=== PATIENT | male | born 2000 | race Hispanic/Latino ===

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

== ENCOUNTER → 2023-05-15 | Emergency (ER) | payer OTHER, SELFPAY ==
[~2023-05-15] MED LIST: KETOROLAC 30 MG/ML INJ ONE; MAGNES/ALUMIN/SIMET 30ML UCUP ONE; PANTOPRAZOLE 40MG TABLET PO ONE
[2023-05-15 22:14] LABS: Hematocrit 43.5 % (39.6-49.0); Lymphocytes % 40.2 % (15.3-44.8); MCV 89.2 fL (80-100); MPV 9.5 fL (7.6-11.3); Platelets 193 thou/uL (152-406); RBC Red Blood Cell Count 4.88 M/uL (4.33-5.43)
--- NOTE | 2023-05-15 22:33 | RAD REPORT ---
EXAM DESCRIPTION: RAD - Chest Single View - 05/15/2023 10:20 pm CLINICAL HISTORY: CHEST PAIN Chest pain. COMPARISON: CHEST PA AND LAT 2 VIEW dated 12/28/2012 FINDINGS: Portable technique limits examination quality. The lungs are grossly clear. The heart is normal in size. No displaced fractures. IMPRESSION: No acute intrathoracic process suspected.
[2023-05-15 22:37] LABS: ALT/SGPT 18 U/L (16-61); AST/SGOT 10 U/L (15-37); Albumin 4.2 g/dL (3.4-5.0); Alkaline Phosphatase 54 U/L (45-117); BUN Blood Urea Nitrogen 11 mg/dL (7-18); Bicarbonate 30 mEq/L (21-32); Bilirubin Direct 0.2 mg/dL (0-0.2); Bilirubin Indirect, Calculated 0.4 mg/dL (0.2-0.8); Bilirubin Total 0.6 mg/dL (0.2-1.0); Glomerular Filtration Rate 114 ml/min (=/>90); Glucose Level 101 mg/dL (74-106); Lipase 43 U/L (13-75); Magnesium 2.2 mg/dL (1.6-2.4); Potassium 4.1 mEq/L (3.5-5.1); Protein, Total 7.6 g/dL (6.4-8.2); Sodium Level 141 mEq/L (136-145)
[2023-05-15 22:42] LABS: Troponin High Sensitivity < 3.0 pg/mL (<58.9)
--- NOTE | 2023-05-15 22:51 | ER ---
Nurse's Notes [facility] Name: Billy Miner Age: 23 yrs Sex: Male : 2000 Arrival Date: 05/15/2023 Time: 21:09 Bed 6 Private MD: Diagnosis: Chest pain, unspecified Presentation: 05/15 21:30 Chief complaint: Patient states: I am having epigastric pain that radiates into my jb4 chest and abdomen. It started about 1030, it's intermittent. I am having some nausea and SOB. Coronavirus screen: At this time, the client does not indicate any symptoms associated with coronavirus-19. Ebola Screen: No symptoms or risks identified at this time. Initial Sepsis Screen: Does the patient meet any 2 criteria? No. Patient's initial sepsis screen is negative. Does the patient have a suspected source of infection? No. Patient's initial sepsis screen is negative. Risk Assessment: Do you want to hurt yourself or someone else? Patient reports no desire to harm self or others. Onset of symptoms was May 15, 2023. Transition of care: patient was not received from another setting of care. 21:30 Method Of Arrival: Ambulatory jb4 21:30 Acuity: GIGI 3 jb4 Historical: - Allergies: 21:37 Zithromax; jb4 - PMHx: 21:37 Depression; Anxiety; jb4 - PSHx: 21:37 Mouth; jb4 - Immunization history:: Adult Immunizations up to date. - Social history:: Smoking status: Patient denies any tobacco usage or history of. Patient uses alcohol, occasionally. - Family history:: not pertinent. Screenin:50 Abuse screen: Denies threats or abuse. Denies injuries from another. nw1 21:50 Tuberculosis screening: No symptoms or risk factors identified. nw1 22:43 [facility] ED Fall Risk Assessment (Adult) History of falling in the last 3 months, nw1 including since admission No falls in past 3 months (0 pts). Nutritional screening: No deficits noted. Assessment: 21:50 Reassessment: Pt noted in bed with guest at bedside. Pt denies pain at this time and nw1 states that it hurts more with ambulation and is intermittent. VSS at this time. Call light at bedside. 0 s/s of acute distress noted at this time. Will continue to monitor. General: Appears in no apparent distress. comfortable, slender, Behavior is calm, cooperative, appropriate for age. Pain: Complains of pain in chest Pain does not radiate. Pain began 2 hours ago. Is intermittent. Cardiovascular: Reports chest pain, Denies diaphoresis, fatigue, lightheadedness, nausea, palpitations, shortness of breath, syncope, vomiting, Heart tones present. Respiratory: No deficits noted. : No deficits noted. No signs and/or symptoms were reported regarding the genitourinary system. Derm: No signs and/or symptoms reported regarding the dermatologic system. Skin is intact, is healthy with good turgor, Skin is dry, Skin is pink, warm \T\ dry. Musculoskeletal: No signs and/or symptoms reported regarding the musculoskeletal system. Capillary refill < 3 seconds, Range of motion: intact in all extremities. 21:50 GI: No deficits noted. No signs and/or symptoms were reported involving the nw1 gastrointestinal system. Vital Signs: 21:30 BP 123 / 86; Pulse 81; Resp 16; Temp 98.2(TE); Pulse Ox 100% on R/A; Weight 63.05 kg jb4 (R); Height 6 ft. 0 in. (R); 22:00 BP 116 / 72; Pulse 76; Resp 14; Pulse Ox 100% on R/A; km8 22:31 BP 114 / 78; Pulse 76; Pulse Ox 99% on R/A; nw1 23:32 BP 109 / 74; Pulse 76; Resp 17; Pulse Ox 100% on R/A; Pain 0/10; nw1 21:30 Body Mass Index 18.85 (63.05 kg, 182.88 cm) jb4 23:32 Pain Scale: Adult nw1 Wilder Coma Score: 22:43 Eye Response: spontaneous(4). Motor Response: obeys commands(6). Verbal Response: nw1 oriented(5). Total: 15. ED Course: 21:17 Patient arrived in ED. gm2 21:18 Parminder Yang MD is Attending Physician. rt 21:37 Triage completed. jb4 21:37 Arm band placed on right wrist. jb4 21:45 Gely Underwood, CORBY is Primary Nurse. nw1 21:50 Client placed on continuous cardiac and pulse oximetry monitoring. NIBP monitoring nw1 applied. master deputy [address] security on. Pulse ox on. NIBP on. 21:50 Inserted saline lock: 20 gauge in left forearm, using aseptic technique. Blood nw1 collected. Patient maintains SpO2 saturation greater than 95% on room air. 21:58 XRAY Chest (1 view) Sent. nw1 21:58 CBC with Diff Sent. nw1 21:58 LFT's Sent. nw1 21:58 Magnesium Sent. nw1 21:58 Troponin HS Sent. nw1 21:58 No provider procedures requiring assistance completed. nw1 21:59 Lipase Sent. nw1 22:21 XRAY Chest (1 view) In Process Unspecified. EDMS 22:43 Patient has correct armband on for positive identification. Placed in gown. Bed in low nw1 position. Call light in reach. Side rails up X2. Provided Education on: POC. Door closed. Warm blanket given. 23:32 IV discontinued, intact, bleeding controlled, No redness/swelling at site. Pressure nw1 dressing applied. Administered Medications: 22:18 Drug: Alum-Mag Hydroxide-Simeth PO Suspension (200 mg-200 mg-20 mg/5 mL) 30 ml PO once nw1 Route: PO; 23:12 Follow up: Response: No adverse reaction km8 22:18 Drug: Pantoprazole PO 40 mg PO once Route: PO; nw1 23:12 Follow up: Response: No adverse reaction km8 23:24 Drug: Ketorolac IVP 15 mg IVP once Route: IVP; Site: left forearm; nw1 Medication: 22:43 VIS not applicable for this client. nw1 Outcome: 22:51 Discharge ordered by . rt 23:32 Discharged to home ambulatory, nw1 23:32 Condition: stable 23:32 Discharge instructions given to patient, Instructed on discharge instructions, follow up and referral plans. Demonstrated understanding of instructions, follow-up care, 23:34 Patient left the ED. nw1 Signatures: Dispatcher [employer] EDMN Nomi Engle, RN RN jb4 Parminder Yang MD MD rt Jeni Hernandez 2 Stacy Vitale, CORBY RN km8 Gely Underwood, CORBY RN nw1 Corrections: (The following items were deleted from the chart) 22:53 22:43 Client placed on continuous cardiac and pulse oximetry monitoring. NIBP nw1 monitoring applied. master deputy sheriff court security on. Pulse ox on. NIBP on. nw 22:43 Abuse screen: Denies threats or abuse. Denies injuries from another. nw1 53 22:43 Tuberculosis screening: No symptoms or risk factors identified. nw1 22:43 Reassessment: Pt noted in bed with guest at bedside. Pt denies pain at this time nw1 and states that it hurts more with ambulation and is intermittent. VSS at this time. Call light at bedside. 0 s/s of acute distress noted at this time. Will continue to monitor. nw 22:43 General: Appears in no apparent distress. comfortable, slender, Behavior is calm, nw1 cooperative, appropriate for age, nw 22:43 Pain: Complains of pain in chest Pain does not radiate. Pain began 2 hours ago. nw1 Is intermittent, 22:43 Cardiovascular: Reports chest pain, Denies diaphoresis, fatigue, lightheadedness, nw1 nausea, palpitations, shortness of breath, syncope, vomiting, Heart tones present 22:43 Respiratory: No deficits noted. nw1 22:43 GI: No deficits noted. No signs and/or symptoms were reported involving the nw1 gastrointestinal system. nw 22:43 : No deficits noted. No signs and/or symptoms were reported regarding the nw1 genitourinary system. nw 22:43 Derm: No signs and/or symptoms reported regarding the dermatologic system. Skin nw1 is intact, is healthy with good turgor, Skin is dry, Skin is pink, warm \T\ dry. nw 22:43 Musculoskeletal: No signs and/or symptoms reported regarding the musculoskeletal nw1 system. Capillary refill < 3 seconds, Range of motion: intact in all extremities, nw1
--- NOTE | 2023-05-15 22:51 | EDPHYS ---
Physician Documentation [facility] Name: Billy Miner Age: 23 yrs Sex: Male : 2000 Arrival Date: 05/15/2023 Time: 21:09 Bed 6 Private MD: ED Physician Parminder Yang HPI: 05/15 22:15 This 23 yrs old Male presents to ER via Ambulatory with complaints of Chest rt Pain, Abdominal Problem. 22:15 Patient presents to the ED with an upper epigastric to lower chest pain started about rt 10. Has been coming and going. Denies any inciting, aggravating or alleviating factors. Similar symptoms previously. Has reported nausea, vomiting. Denies other acute complaints, symptoms are mild severity, no other aggravating relieving factors.. Historical: - Allergies: 21:37 Zithromax; jb4 - PMHx: 21:37 Depression; Anxiety; jb4 - PSHx: 21:37 Mouth; jb4 - Immunization history:: Adult Immunizations up to date. - Social history:: Smoking status: Patient denies any tobacco usage or history of. Patient uses alcohol, occasionally. - Family history:: not pertinent. ROS: 22:15 Constitutional: Negative for fever, chills, and weight loss, Respiratory: Negative for rt shortness of breath, cough, wheezing, and pleuritic chest pain, MS/Extremity: Negative for injury and deformity, Skin: Negative for injury, rash, and discoloration, Neuro: Negative for headache, weakness, numbness, tingling, and seizure, Psych: Negative for depression, anxiety, suicide ideation, homicidal ideation, and hallucinations, 22:15 Cardiovascular: Positive for chest pain, Negative for edema, 22:15 Abdomen/GI: Positive for abdominal pain, nausea, Exam: 22:15 Constitutional: This is a well developed, well nourished patient who is awake, alert, rt and in no acute distress. Head/Face: Normocephalic, atraumatic. Chest/axilla: Normal chest wall appearance and motion. Nontender with no deformity. No lesions are appreciated. Cardiovascular: Regular rate and rhythm with a normal S1 and S2. No gallops, murmurs, or rubs. Normal PMI, no JVD. No pulse deficits. Respiratory: Lungs have equal breath sounds bilaterally, clear to auscultation and percussion. No rales, rhonchi or wheezes noted. No increased work of breathing, no retractions or nasal flaring. Abdomen/GI: Soft, non-tender, with normal bowel sounds. No distension or tympany. No guarding or rebound. No evidence of tenderness throughout. Skin: Warm, dry with normal turgor. Normal color with no rashes, no lesions, and no evidence of cellulitis. MS/ Extremity: Pulses equal, no cyanosis. Neurovascular intact. Full, normal range of motion. Neuro: Awake and alert, GCS 15, oriented to person, place, time, and situation. Cranial nerves II-XII grossly intact. Motor strength 5/5 in all extremities. Sensory grossly intact. Cerebellar exam normal. Normal gait. Psych: Awake, alert, with orientation to person, place and time. Behavior, mood, and affect are within normal limits. 22:42 ECG was reviewed by the Attending Physician. rt Vital Signs: 21:30 BP 123 / 86; Pulse 81; Resp 16; Temp 98.2(TE); Pulse Ox 100% on R/A; Weight 63.05 kg jb4 (R); Height 6 ft. 0 in. (R); 22:00 BP 116 / 72; Pulse 76; Resp 14; Pulse Ox 100% on R/A; km8 22:31 BP 114 / 78; Pulse 76; Pulse Ox 99% on R/A; nw1 23:32 BP 109 / 74; Pulse 76; Resp 17; Pulse Ox 100% on R/A; Pain 0/10; nw1 21:30 Body Mass Index 18.85 (63.05 kg, 182.88 cm) jb4 23:32 Pain Scale: Adult nw1 Carmel Coma Score: 22:43 Eye Response: spontaneous(4). Motor Response: obeys commands(6). Verbal Response: nw1 oriented(5). Total: 15. MDM: 21:24 Patient medically screened. rt 22:51 Differential diagnosis: acute myocardial infarction, acute pericarditis, anxiety, rt coronary artery disease costochondritis, esophagitis, pneumonia, pneumothorax. HEART Score: History: Slightly Suspicious (0), ECG: Normal (0), Age: < or = 45 years (0), Risk Factors: No Risk Factors Known (0), Troponin: < or = 1 x Normal Limit (0), Total Score = 0. Data reviewed: vital signs, nurses notes, lab test result(s), EKG, radiologic studies. Consideration of Admission/Observation Escalation of care including admission/observation considered. Low heart score, given chronicity of symptoms, 1 set of enzymes is sufficient to rule out acute coronary syndrome., Patient has benign labs, no abdominal tenderness. Low suspicion for cholecystitis, appendicitis, bowel obstruction, CT scan indicated. Independent interpretation of the following test(s) in the Emergency Department X-Ray: My interpretation is No pneumonia seen on interpretation on x-ray images. Test considered but Not performed: CT: PE RC negative, does not require CT angiogram to rule out pulm embolism. Counseling: I had a detailed discussion with the patient and/or guardian regarding the historical points, exam findings, and any diagnostic results supporting the discharge/admit diagnosis, lab results, radiology results, the need for outpatient follow up, to return to the emergency department if symptoms worsen or persist or if there are any questions or concerns that arise at home. 05/15 21:31 Order name: Basic Metabolic Panel; Complete Time: 22:43 rt 05/15 21:31 Order name: CBC with Diff; Complete Time: 22:35 rt 05/15 21:31 Order name: LFT's; Complete Time: 22:43 rt 05/15 21:31 Order name: Magnesium; Complete Time: 22:43 rt 05/15 21:31 Order name: Troponin HS; Complete Time: 22:43 rt 05/15 21:31 Order name: Lipase; Complete Time: 22:43 rt 05/15 21:31 Order name: XRAY Chest (1 view); Complete Time: 22:35 rt 05/15 21:31 Order name: EKG; Complete Time: 21:32 rt 05/15 21:31 Order name: Cardiac monitoring; Complete Time: 21:58 rt 05/15 21:31 Order name: EKG - Nurse/Tech; Complete Time: 21:58 rt 05/15 21:31 Order name: IV Saline Lock; Complete Time: 21:58 rt 05/15 21:31 Order name: Labs collected and sent; Complete Time: 21:58 rt 05/15 21:31 Order name: O2 Per Protocol; Complete Time: 21:58 rt 05/15 21:31 Order name: O2 Sat Monitoring; Complete Time: 21:58 rt EC:42 Rate is 72 beats/min. Rhythm is regular, Normal Sinus Rhythm with No ectopy. QRS [place] rt is Normal. MA interval is normal. QRS interval is normal. QT interval is normal. No Q waves. T waves are Normal. No ST changes noted. Administered Medications: 22:18 Drug: Alum-Mag Hydroxide-Simeth PO Suspension (200 mg-200 mg-20 mg/5 mL) 30 ml PO once nw1 Route: PO; 23:12 Follow up: Response: No adverse reaction km8 22:18 Drug: Pantoprazole PO 40 mg PO once Route: PO; nw1 23:12 Follow up: Response: No adverse reaction 8 23:24 Drug: Ketorolac IVP 15 mg IVP once Route: IVP; Site: left forearm; nw1 Disposition Summary: 05/15/23 22:51 Discharge Ordered Notes: Location: Home rt Problem: new rt Symptoms: have improved rt Condition: Stable rt Diagnosis - Chest pain, unspecified rt Followup: rt - With: Private Physician - When: 2 - 3 days - Reason: Followup: rt - With: Emergency Department - When: As needed - Reason: Worsening of condition Discharge Instructions: - Discharge Summary Sheet rt - Nonspecific Chest Pain, Adult rt Forms: - Medication Reconciliation Form rt - Thank You Letter rt - Antibiotic Education rt - Prescription Opioid Use rt - Patient Portal Instructions rt - Leadership Thank You Letter rt Signatures: Dispatcher [employer] Nomi Ross, CORBY RN jb4 Parminder Yang MD MD rt Gely Underwood RN RN nw1 Stacy Vitale RN km8
[2023-05-16 02:56] VITALS: BP 109/74; TEMP 98.2; O2SAT 100
--- NOTE | 2023-05-17 12:24 | EKG ---
Test Date: 2023-05-15 Test Time: 22:21:45 Medication Tech: LILLIE MEASUREMENT RESULTS: Intervals: Rate: 72 NC: 162 QRSD: 88 QT: 398 QTc: 435 [place]: P: 51 NC: 162 QRS: 96 T: 67 INTERPRETIVE STATEMENTS: Normal sinus rhythm Normal ECG No previous ECG available for comparison Electronically Signed On 05-17-23 12:20:06 CASEY SAW OPERATOR by Xiang Dobbs
== END ==
LOC: ER 21:09
DX: R07.89 Other chest pain (principal); R10.13 Epigastric pain; Z88.1 Allergy status to other antibiotic agents
CPT/HCPCS: 36415; 71045; 80048; 80076; 83690; 83735; 84484; 85025; 93005; 96374; 99285

== ENCOUNTER 2024-07-28 11:11 | Emergency (ER) | payer OTHER ==
--- OUTSIDE RECORDS SUMMARY | 2024-07-28 11:15 | XMS REPORT | Continuity of Care Document ---
Author Name Unknown Address [address] [facility] [address] [place] [address] [facility] Address [address] [place] [address] Care Team Providers Care Boat Ride Operator Name Role Phone MORIS RENDON Primary Care Physician Unavailab cristin GRANT, DR ONESIMO RILEY Attending Clinician Unavailable AFUWAPE, DR ONESIMO RILEY Attending Clinician Unavailable AFUWAPE, DR ONESIMO RILEY Admitting Clinician Unavailable Payers Payer Name Policy Type Policy Number Effective Date Expirati on Date Source [id number] 1959 00:00:00 Allergies, Adverse Reactions, Alerts Allergy Name Allergy Type Status Severity Reaction(s) Onset Date Inactive Date Treating Clinician Comments Source Jose D DE LA ROSA Active Unknown [facility] Encounters Start Date/Time End Date/Time Encounter Type Admission Type Attending Clinicians Care Facility Care Department Encounter ID Source 2024-02-11 21:30:00 2024-02-11 23:24:00 Emergency E AFUWAPE, [facility] AF[facility], [facility] [place] [place] [facility] [id number] [facility] 2024-02-11 21:30:00 2024-02-11 23:24:00 Outpatient [facility] [id number] [facility] 2024-02-11 21:30:00 2024-02-11 21:30:00 Emergency E AFUWAPE, [facility] AFUWAPE, [facility] [place] [place] [facility] [id number] [facility] Results Test Description Test Time Test Comments Results Result Co mments Source
[2024-07-28 14:35] LABS: Absolute Eosinophils 0.1 K/uL (0-0.5); Absolute Lymphocytes (CBC) 1.3 K/uL (0.7-4.9); Absolute Monocytes 0.7 K/uL (0.1-1.3); Absolute Neutrophil 5.5 K/uL (1.8-8.0); Basophils % 0.6 % (0-1.3); Eosinophils % 0.9 % (0-4.4); Hematocrit 44.1 % (39.6-49.0); Hemoglobin 15.1 g/dL (13.6-17.9); Lymphocytes % 16.9 % (15.3-44.8); MCH 30.9 pg (27.0-35.0); MCHC 34.2 g/dL (32.0-36.0); MCV 90.5 fL (80-100); MPV 10.1 fL (7.6-11.3); Monocytes % 9.1 % (3.3-12.3); Neutrophils % 72.5 % (41.7-73.7); Platelets 180 thou/uL (152-406); RBC Red Blood Cell Count 4.88 M/uL (4.33-5.43); Red Cell Distribution Width 13.5 % (12.1-15.2)
[2024-07-28 14:48] LABS: Influenza A Ag Negative; Influenza B Ag Negative; SARS-CoV-2 Antigen Rapid Res Negative (Negative)
[2024-07-28 14:55] LABS: Anion Gap 6.5 mEq/L (5.0-15.0); Potassium 3.5 mEq/L (3.5-5.1)
[2024-07-28] MEDS ORDERED: ONDANSETRON 4 MG/2 ML VIAL ONE (15:19)
[2024-07-28] MEDS ORDERED: dexAMETHasone 10 MG/ML VIAL ONE (15:20)
--- NOTE | 2024-07-28 15:38 | EDPHYS ---
Physician Documentation [facility] Name: Billy Miner Age: 24 yrs Sex: Male : 2000 Arrival Date: 07/28/2024 Time: 11:11 Bed 9 Private MD: ED Physician Salty Mackenzie HPI: 07/28 12:10 This 24 yrs old Male presents to ER via Ambulatory with complaints of Nose ec2 Bleed, Sore Throat. 12:10 Patient arrives today for evaluation of sore throat, nosebleed as well as congestion ec2 and cough and cold symptoms. Patient reports significant urination for several days. Reports that has been having poor p.o. intake, some occasional nausea as well. No significant medical problems. States that he does occasionally use cocaine which he snorts. Patient also reports some occasional rectal bleeding which is associated with pain with defecation.. Historical: - Allergies: 12:05 Zithromax; iw - PMHx: 12:05 Depression; Anxiety; iw - PSHx: 12:05 mouth; iw ROS: 12:11 Constitutional: as per hpi ec2 Exam: 12:11 Constitutional: GEN: NAD Head: atraumatic Eyes: EOMI Ears: External ears are ec2 normal. CV: regular rate LUNGS: no respiratory distress, no wheezes or rales or rhonchi ABD: non-distended SKIN: no evidence of rashes MSK: no evidence of trauma Vital Signs: 12:03 BP 116 / 65; Pulse 77; Resp 18; Temp 98.4; Pulse Ox 95% on R/A; iw MDM: 12:02 Medical Screening Exam initiated ec2 12:11 Data reviewed: vital signs, nurses notes. ED course: Patient arrives today for ec2 evaluation of URI symptoms and sore throat. Examination is unrevealing. Will obtain viral swab, lab work and treat the patient with crystalloid and Decadron as well as Zofran for his nausea and sore throat. DDx includes viral infection, strep pharyngitis. Initially possible nosebleeding secondary to cocaine use.. 14:57 ED course: Viral swab and strep swab negative. Will discharge home and prescribe the ec2 patient medications for symptoms. Return precautions given.. 15:37 ED course: Rectal examination performed under supervision, CORBY Arias, patient with ec2 abrasion to at the 2 o'clock position. No active bleeding, no hemorrhoid present. Will discharge home. Return precautions given.. 07/28 12:10 Order name: CBC with Diff; Complete Time: 14:37 ec2 07/28 12:10 Order name: BMP; Complete Time: 14:57 ec2 07/28 12:10 Order name: COVID-19 Ag + Flu A+B Ag; Complete Time: 14:55 ec2 07/28 12:10 Order name: Group A Streptococcus Rapid; Complete Time: 14:55 ec2 07/28 14:52 Order name: Throat Culture EDNE 07/28 12:10 Order name: IV; Complete Time: 14:29 ec2 Administered Medications: 15:24 Not Given (Physician Discretion): ns 0.9% 1000 ml IV at 1000 ml once; to be given as a iw bolus over 60 minutes 15:37 Drug: Ondansetron IVP 4 mg IVP once; over 2 minutes Route: IVP; Site: left antecubital; iw 15:37 Drug: Decadron - Dexamethasone IVP 10 mg IVP once Route: IVP; Site: left antecubital; iw Disposition Summary: 07/28/24 15:38 Discharge Ordered Notes: Location: Home ec2 Condition: Stable ec2 Diagnosis - Viral infection, unspecified ec2 - Acute anal fissure ec2 Followup: ec2 - With: Private Physician - When: - Reason: Re-evaluation by your physician Discharge Instructions: - Discharge Summary Sheet ec2 - Viral Illness, Adult ec2 Forms: - Medication Reconciliation Form ec2 - Antibiotic Education ec2 - Prescription Opioid Use ec2 - Patient Portal Instructions ec2 - Leadership Thank You Letter ec2 Prescriptions: - Zofran 4 mg Oral Tablet - take 1 tablet ORAL route every 12 hours As needed; 20 tablet; Refills: 0, ec2 Product Selection Permitted - Prednisone 20 mg Oral Tablet - take 2 tablets ORAL route once daily for 5 days; 10 tablet; Refills: 0, Product ec2 Selection Permitted Signatures: Dispatcher [employer] Juana Kilpatrick RN RN iw Corral, Edwin, MD MD ec2 Corrections: (The following items were deleted from the chart) 12:12 12:10 Patient arrives today for evaluation of sore throat, nosebleed as well as ec2 congestion and cough and cold symptoms. Patient reports significant urination for several days. Reports that has been having poor p.o. intake, some occasional nausea as well. No significant medical problems. States that he does occasionally use cocaine which he snorts.. ec2
--- NOTE | 2024-07-28 15:38 | ER ---
Nurse's Notes [facility] Name: Billy Miner Age: 24 yrs Sex: Male : 2000 Arrival Date: 07/28/2024 Time: 11:11 Bed 9 Private MD: Diagnosis: Viral infection, unspecified;Acute anal fissure Presentation: 07/28 12:03 Chief complaint: Patient states: woke up with my eyes red, my nose is bleeding for a iw few days, comes and goes , congestion, sore throat , also having rectal bleeding only when he wipes, also having low abd cramping. Coronavirus screen: At this time, the client does not indicate any symptoms associated with coronavirus-19. Ebola Screen: No symptoms or risks identified at this time. Initial Sepsis Screen: Does the patient meet any 2 criteria? No. Patient's initial sepsis screen is negative. Does the patient have a suspected source of infection? No. Patient's initial sepsis screen is negative. Risk Assessment: Do you want to hurt yourself or someone else? Patient reports no desire to harm self or others. 12:03 Method Of Arrival: Ambulatory iw 12:03 Acuity: GIGI 3 iw 12:05 Onset of symptoms was July 24, 2024. iw Historical: - Allergies: 12:05 Zithromax; iw - PMHx: 12:05 Depression; Anxiety; iw - PSHx: 12:05 mouth; iw Screenin:10 [facility] ED Fall Risk Assessment (Adult) History of falling in the last 3 months, iw including since admission No falls in past 3 months (0 pts) Confusion or Disorientation No (0 pts) Intoxicated or Sedated No (0 pts) Impaired Gait No (0 pts) Mobility Assist Device Used No (0 pt) Altered Elimination No (0 pt) Score/Fall Risk Level 0 - 2 = Low Risk Oriented to surroundings. 15:37 Abuse screen: Denies threats or abuse. Denies injuries from another. Nutritional iw screening: No deficits noted. Tuberculosis screening: No symptoms or risk factors identified. Assessment: 12:10 General: Appears in no apparent distress. Behavior is calm, cooperative. Pain: iw Complains of pain in throat. Neuro: Level of Consciousness is awake, alert, obeys commands, Oriented to person, place, time, situation, Moves all extremities. Full function. Respiratory: Airway is patent Respiratory effort is even, unlabored, Breath sounds are clear bilaterally. EENT: Throat is clear. 15:37 Reassessment: Patient appears in no apparent distress at this time. Patient and/or iw family updated on plan of care and expected duration. Pain level reassessed. Patient is alert, oriented x 3, equal unlabored respirations, skin warm/dry/pink. Vital Signs: 12:03 BP 116 / 65; Pulse 77; Resp 18; Temp 98.4; Pulse Ox 95% on R/A; iw ED Course: 11:15 Patient arrived in ED. mr 11:17 Salty Mackenzie MD is Attending Physician. ec2 12:05 Triage completed. iw 12:05 Arm band placed on. iw 14:29 Initial lab(s) drawn, by me, sent to lab. Inserted saline lock: 22 gauge in left iw antecubital area, using aseptic technique. Blood collected. Flushed with 10 mL NS. 14:29 Group A Streptococcus Rapid Sent. iw 14:29 COVID-19 Ag + Flu A+B Ag Sent. iw 15:37 Juana Underwood, RN is Primary Nurse. iw Administered Medications: 15:24 Not Given (Physician Discretion): ns 0.9% 1000 ml IV at 1000 ml once; to be given as a iw bolus over 60 minutes 15:37 Drug: Ondansetron IVP 4 mg IVP once; over 2 minutes Route: IVP; Site: left antecubital; iw 15:37 Drug: Decadron - Dexamethasone IVP 10 mg IVP once Route: IVP; Site: left antecubital; iw Outcome: 15:38 Discharge ordered by . ec2 16:17 Discharged to home ambulatory, iw 16:17 Condition: good 16:17 Discharge instructions given to patient, Instructed on discharge instructions, follow up and referral plans. medication usage, Demonstrated understanding of instructions, follow-up care, medications, Prescriptions given X 2, 16:18 Patient left the ED. Signatures: Jana German, Reg Reg Juana Underwood, RN RN Brianna Chen RN RN Salty Mackenzie MD MD ec2 Corrections: (The following items were deleted from the chart) 12:06 12:03 Chief complaint: Patient states: woke up with my eyes red, my nose is bleeding iw for a few days, comes and goes , congestion, sore throat , also having rectal bleeding only when he wipes iw
[2024-07-28 16:23] VITALS: BP 116/65; TEMP 98.4; O2SAT 95
== END 2024-07-28 16:18 | disposition home or self-care (01) ==
LOC: ER 11:11
DX: B34.9 Viral infection, unspecified (principal); K60.2 Anal fissure, unspecified; Z11.52 Encounter for screening for COVID-19
CPT/HCPCS: 87070; 85025; 80048; 36415; 96375; 96374; 99284; 87428; J1100; J2405

== ENCOUNTER 2025-01-29 07:44 | Emergency (ER) | payer OTHER ==
--- OUTSIDE RECORDS SUMMARY | 2025-01-29 07:50 | XMS REPORT | Continuity of Care Document ---
Author Name Unknown Address [address] [facility] [address] [place] [address] [facility] Address [address] [place] [address] Care Team Providers Care Blue Split Trimmer Name Role Phone MORIS RENDON Primary Care Physician Unavailab GALILEA Small Attending Clinician Unavailable Manas PROFESSIONAL SERVICES CONSULTANTGalilea Attending Clinician DR ONESIMO GRANT Attending Clinician Unavailable RUDY, DR ONESIMO RILEY Attending Clinician Unavailable GALILEA KNPAP Admitting Clinician Unavailable RUDY, DR ONESIMO RILEY Admitting Clinician Unavailable Payers Payer Name Policy Type Policy Number Effective Date Expirati on Date Source AETNA POS/AETNA POS II [id number] 2022 00:00:00 [id number] 1959 00:00:00 Allergies, Adverse Reactions, Alerts Allergy Name Allergy Type Status Severity Reaction(s) Onset Date Inactive Date Treating Clinician Comments Source Azithrom ycin Propensi ty to adverse reaction s Active Rash 12-04 00:00: 00 [facility] AZITHROM YCIN DRUG INGREDI Active Rash 12-04 00:00: 00 [facility] Azithrom ycin DA Active Unknown [facility] Social History Social Habit Start Date Stop Date Quantity Comments Source Sexual orientation U [facility] Sex assigned at 2000 00:00:00 2000 00:00:00 [facility] Smoking Status Start Date Stop Date Source Tobacco smoking consumption unknown [facility] Medications Ordered Medication Name Filled Medication Name Start Date Stop Date Current Medication? Ordering Clinician Indication Dosage Frequency Signature (SIG) Comments Components Source iopamidol (ISOVUE 370-500 mL) injection 70 mL 07-30 06:00: 00 07-30 06:00 :00 No [id number] 70mL 70 mL, Intravenou s, ONCE, 1 dose, On 07/30/24 at 0100, Routine [facility] metoclopram estelita HCl (REGLAN) injection 10 mg 07-30 05:45: 00 07-30 05:47 :00 No 10mg 10 mg, Slow IV Push, ONCE, 1 dose, On [place] 07/30/24 at 0045, [facility] NaCl 0.9% (NS) bolus infusion 1,000 mL 07-30 05:15: 00 07-30 05:48 :00 No 1000mL at 999 mL/hr, 1,000 mL, IV Infusion, ONCE, 1 dose, On 07/30/24 at 0015, JASON [facility] fentanyl PF (SUBLIMAZE (PF)) injection 25 mcg 07-30 04:30: 00 07-30 04:25 :00 No 25ug 25 mcg, Slow IV Push, ONCE, 1 dose, On 07/29/24 at 2330, STAT [facility] ondansetron (ZOFRAN (PF)) injection 4 mg 07-30 04:30: 00 07-30 04:27 :00 No 4mg 4 mg, Slow IV Push, ONCE, 1 dose, On 07/29/24 at 2330, Administer over 2-5 Minutes, 2 mL [facility] sodium chloride (NS) injection 5 mL 07-30 04:20: 24 Yes 5mL 5 mL, Intravenou s, PRN, Starting on 07/29/24 at 2320, Until Discontinu ed, Routine, IV line flushing [facility] proMETHazin e 25 mg tablet 07-30 00:00: 00 Yes [id number] 25mg Take 1 tablet by mouth every 4 (four) hours as needed for Nausea and Vomiting (N/V). [facility] albuterol sulfate HFA 90 mcg/actuati on aerosol inhaler 07-30 00:00: 00 07-30 00:00 :00 No [id number] 2{puff} Inhale 2 Puffs every 4 (four) hours as needed for Wheezing or Shortness of Breath. [facility] levoFLOXaci n 500 mg tablet 07-30 00:00: 00 07-30 00:00 :00 No [id number] 500mg Take 1 tablet by mouth every 24 (twenty-fo ur) hours for 7 days. [facility] Immunizations Ordered Immunization Name Filled Immunization Name Date Status Comments Source SARS-COV-2 COVID-19 PFIZER VACCINE 2020-08-17 00:00:00 Completed [facility] SARS-COV-2 COVID-19 PFIZER VACCINE 2020-07-27 00:00:00 Completed [facility] TDAP 2014-12-04 00:00:00 Completed Meningococcal Polysaccharide (groups A, C, Y and W-135) conjugate vaccine (MCV4P) 2014-12-04 00:00:00 Completed Varicella (varivax)(chicken pox) 2014-12-04 00:00:00 Completed Vital Signs Vital Name Observation Time Observation Value Comments S shady Systolic blood pressure 2024-07-30 07:00:00 121 mm[Hg] [facility] Diastolic blood pressure 2024-07-30 07:00:00 82 mm[Hg] [facility] Heart rate 2024-07-30 07:00:00 111 /min [facility] Respiratory rate 2024-07-30 07:00:00 22 /min [facility] Oxygen saturation in Arterial blood by Pulse oximetry 2024-07-30 07:00:00 97 /min [facility] Body temperature 2024-07-30 04:13:00 36.89 Moni [facility] Body height 2024-07-30 04:13:[address] [facility] Body weight 2024-07-30 04:13:[address] [facility] BMI 2024-07-30 04:13:00 18.31 kg/m2 [facility] Procedures Procedure Date / Time Performed Performing Clinician Source URINE DRUG (IMMUNOASSAY) - COMPREHENSIVE DRUG SCREEN 2024-07-30 05:55:00 Galilea Knapp [facility] URINALYSIS 2024-07-30 05:55:[address] [facility] FENTANYL (IMMUNOASSAY) 2024-07-30 05:55:00 Sheela Knapp [facility] CT ABDOMEN PELVIS W CONTRAST 2024-07-30 05:02:40 Galilea Knapp [facility] INFLUENZA A/B RSV COVID NAAT 2024-07-30 04:38:00 Galilea Knapp [facility] LIPASE 2024-07-30 04:23:[address] [facility] COMP. METABOLIC PANEL (03506) 2024-07-30 04:23:00 Galilea Knapp [facility] CBC WITH DIFF 2024-07-30 04:23:[address] [facility] Encounters Start Date/Time End Date/Time Encounter Type Admission Type Attending Clinicians Care Facility Care Department Encounter ID Source 2024-07-29 23:17:00 2024-07-30 02:32:00 Emergency X GALILEA KNAPP ERT [id number] [facility] 2024-07-29 23:17:00 2024-07-30 02:32:00 Emergency Galilea Knapp AT [facility] [id number] [facility] 2024-02-11 21:30:00 2024-02-11 23:24:00 Outpatient OM[facility]S OMOCS [id number] [facility] 2024-02-11 21:30:00 2024-02-11 23:24:00 Emergency E ONESIMO GRANT [facility] [id number] [facility] 2024-02-11 21:30:00 2024-02-11 21:30:00 Emergency E ONESIMO GRANT [facility] [id number] [facility] Results Test Description Test Time Test Comments Results Result Comments Source CT ABDOMEN PELVIS W CONTRAST 05:45:22 ORDERING PHYSICIAN:GALILEA STEVEN CLINICAL INFORMATION: ? RLQ abdominal pain (Age >= 14y) COMPARISON: None Technique: ? CT of the abdomen and pelvis was performed after theadministration of IV contrast. No p.o. contrast was used. Multiplanarreformats were also obtained. This study was performed according to ALARAprinciple for radiation dose reduction. Findings: There is no evidence of obstructive uropathy. No suspicious renalparenchymal abnormalities are seen. Liver, gallbladder, spleen, adrenalglands, and pancreas show no evidence of gross abnormalities. There is noevidence of high-grade bowel obstruction. There is no appendicitis. Thereis mild diffuse small bowel mucosal edema. Fluid-filled nondistended loopsof small bowel are also seen throughout the abdomen with several smallair-fluid levels seen in the lower abdomen/pelvis. No free air or freefluid are seen. No focal loculated drainable fluid collections are seen.There is mild patchy opacification seen in the right lung base. Nosuspicious focal osseous lesions are seen. [facility] [id number] 05:14:26* Test Item Value Reference Range Interpretation Comme nts LIPASE (test code = 9901890583) 191 U/L 0-220 Lab Interpretation (test cod e = 81116-7) Normal [facility] with [id number] 05:02:25* Test Item Value Reference Range Interpretation Comme nts WBC (test code = 6690-2) 13.22 4.20-10.70 H RBC (test code = 789-8) 5.50 4.26-5.52 HGB (test code = 718-7) 17.0 g/dL 12.2-16.4 H HCT (test code = 4544-3) 50.1 % 38.4-49.3 H MCV (test code = 787-2) 91.1 fL 81.7-95.6 MCH (test code = 785-6) 30.9 pg 26.1-32.7 MCHC (test code = 786-4) 33.9 g/dL 31.2-35.0 RDW-SD (test code = 28047-2) 41.0 fL 38.5-51.6 RDW-CV (test code = 788-0) 12.4 % 12.1-15.4 PLT (test code = 777-3) 226 150-328 MPV (test code = 90230-0) 12.0 fL 9.8-13.0 NRBC/100 WBC (test code = 3405899347) 0.0 0.0-10.0 NRBC x10^3 (test code = 7425718276) See_Comment [Automated message] The system which generated this result transmitted reference range: 10*3/?L. The reference range was not used to interpret this result as normal/abnormal. GRAN MAT (NEUT) % (test code = 770-8) 88.5 % IMM GRAN % (test code = 6375228635) 0.30 % LYMPH % (test code = 736-9) 2.2 % MONO % (test code = 5905-5) 8.3 % EOS % (test code = 713-8) 0.4 % BASO % (test code = 706-2) 0.3 % GRAN MAT x10^3(ANC) (test code = 1803511196) 11.70 10*3/uL 1.99-6.95 H IMM GRAN x10^3 (test code = 7609204550) 0.04 10*3/uL 0.00-0.06 LYMPH x10^3 (test code = 731-0) 0.29 10*3/uL 1.09-3.23 L MONO x10^3 (test code = 742-7) 1.10 10*3/uL 0.36-1.02 H EOS x10^3 (test code = 711-2) 0.05 10*3/uL 0.06-0.53 L BASO x10^3 (test code = 704-7) 0.04 10*3/uL 0.01-0.09 Lab Interpretation (test code = 50808-1) Abnormal [facility] [id number] 22:28:00* Test Item Value Reference Range Interpretation Comme nts COLOR (test code = COLU) YELLOW YELLOW CLARITY (test code = CLA) CLOUDY CLEAR A GLUCOSE UR (test code = UA GLUCOSE) NEGATIVE NEGATIVE BILI UR (test code = BILE) NEGATIVE NEGATIVE KETONES UR (test code = DAVID) TRACE NEGATIVE A SP GRAVITY (test code = SPGR) 1.022 1.005-1.030 PH UR (test code = PH) 7.5 4.5-8.0 PROTEIN UR (test code = PU) TRACE NEGATIVE A UROBIL UR (test code = UROQ) 1.0 EU/dL 0.2-1.0 NITRITE UR (test code = NITRITE) NEGATIVE NEGATIVE BLOOD UR (test code = UA BLOOD) NEGATIVE NEGATIVE LEUK ES UR (test code = LEUK) NEGATIVE NEGATIVE WBC UR (test code = UWBC) 1 /HPF 0-3 RBC UR (test code = URBC) 4 /HPF 0-2 H EPITH UR (test code = UEPC) NONE /LPF NONE BACTERIA UR (test code = UBACT) FEW /HPF NONE A CAST UR (test code = CAST) /LPF NONE CRYSTAL UR (test code = CRYU) / LPF NONE MUCUS UR (test code = MUC) / HPF NONE AMORPH UR (test code = PARISH) / HPF NONE TRICH UR (test code = UTRICH) /HPF NONE YEAST UR (test code = UY) /HPF NONE SPERM UR (test code = USPERM) /HPF NONE Notes Date/Time Note Provider Source 2024-07-30 02:30:55 Pt given printed and verbal discharge instructions regarding cannabis hyperemesis syndrome. Prescriptions provided. Pt verbalized understanding of instructions, pt awake alert oriented, resp reg unlabored, skin w/d, color appropriate for race, moves all ext well, pt encouraged to follow up with pcp. Advised to seek medical attention for new/prolonged/worsening of symptoms. No adverse reaction to meds given in ER noted upon discharge. PIV d'cd, dressing to site, catheter in tact. Awake, alert oriented, resp reg unlabored, skin w/d, pt leaving amb with steady gait, in no apparent distress. [facility] 2024-07-30 02:04:14 Patient ambulated to BR-steady on feet. C/O anxiety-provider notified. Rudy Lindsey RN [facility] 2024-07-29 23:10:02 CC: vomiting, weak, epigastric pain, and chills Patient took prednisone 2x and Zofran at 10:15 PM. Patient was seen yesterday at [facility]. Given prednisone and Zofran. Dx with viral syndrome. Patient was negative for COVID, step, and FLU Capri Rehman RN [facility]
[2025-01-29] MEDS ORDERED: DIAZEPAM 10 MG/2 ML INJ SYRINGE ONE (08:06)
[2025-01-29] MEDS ORDERED: NA CHLORIDE 0.9% 1,000 ML ONE (08:06)
[2025-01-29 08:19] LABS: Absolute Lymphocytes (CBC) 1.1 K/uL (0.7-4.9); Hematocrit 47.1 % (39.6-49.0); Hemoglobin 15.9 g/dL (13.6-17.9); MCH 29.8 pg (27.0-35.0); MCHC 33.7 g/dL (32.0-36.0); MCV 88.2 fL (80-100); MPV 9.5 fL (7.6-11.3); Nucleated RBC Absolute Count 0.0 (0-0); Nucleated Red Blood Cells % 0.1 % (0-0); RBC Red Blood Cell Count 5.34 M/uL (4.33-5.43); White Blood Count 4.10 thou/uL (4.3-10.9)
[2025-01-29 08:35] LABS: Anion Gap 5.9 mEq/L (5.0-15.0); BUN Blood Urea Nitrogen 17.0 mg/dL (7-18); Glucose Level 110.0 mg/dL (74-106); Potassium 2.9 mEq/L (3.5-5.1)
[2025-01-29] MEDS ORDERED: KCL 20 MEQ/100 mL IVPB 100 ML IV ONE (09:06)
[2025-01-29] MEDS ORDERED: DIPHENHYDRAMINE 50 MG/ML VIAL ONE (09:50)
[2025-01-29] MEDS ORDERED: NA CHLORIDE 0.9% 500 ML ONE (10:00)
--- NOTE | 2025-01-29 10:22 | ER ---
Nurse's Notes [facility] Name: Billy Miner Age: 24 yrs Sex: Male : 2000 Arrival Date: 01/29/2025 Time: 07:44 Bed 14 Private MD: Diagnosis: Opioid use, unspecified with withdrawal;Anxiety disorder, unspecified;Hypokalemia Presentation: 01/29 08:02 Chief complaint: Patient states: unable to sleep for 3-4 days, last night c/o chest af3 feeling heavy. Coronavirus screen: At this time, the client does not indicate any symptoms associated with coronavirus-19. Ebola Screen: No symptoms or risks identified at this time. Initial Sepsis Screen: Does the patient meet any 2 criteria? No. Patient's initial sepsis screen is negative. Does the patient have a suspected source of infection? No. Patient's initial sepsis screen is negative. Risk Assessment: Do you want to hurt yourself or someone else? Patient reports no desire to harm self or others. 08:02 Method Of Arrival: Ambulatory af3 08:02 Acuity: GIGI 3 af3 Triage Assessment: 08:05 General: Appears in no apparent distress. uncomfortable, well groomed, well developed, af3 Behavior is calm, cooperative, appropriate for age. Pain: Denies pain. Neuro: Level of Consciousness is awake, alert, obeys commands, Oriented to person, place, time, situation, Appropriate for age. Cardiovascular: Patient's skin is warm and dry. Respiratory: Airway is patent Respiratory effort is even, unlabored, Respiratory pattern is regular, symmetrical. Historical: - Allergies: 08:05 Zithromax; af3 - PMHx: 08:05 Anxiety; Depression; af3 - PSHx: 08:05 mouth; af3 - Immunization history:: Adult Immunizations up to date. - Infectious Disease History:: Denies. - Social history:: Smoking status: Patient reports the use of cigarette tobacco products, Patient uses alcohol, street drugs, marijuana. - Family history:: not pertinent. - Hospitalizations: : No recent hospitalization is reported. Screenin:00 [facility] ED Fall Risk Assessment (Adult) History of falling in the last 3 months, cm10 including since admission No falls in past 3 months (0 pts) Confusion or Disorientation No (0 pts) Intoxicated or Sedated No (0 pts) Impaired Gait No (0 pts) Mobility Assist Device Used No (0 pt) Altered Elimination No (0 pt) Score/Fall Risk Level 0 - 2 = Low Risk Oriented to surroundings, Maintained a safe environment, Hourly rounding (assess needs \T\ fall precautionary measures) done. Abuse screen: Denies threats or abuse. Denies injuries from another. Nutritional screening: No deficits noted. Tuberculosis screening: No symptoms or risk factors identified. Assessment: 08:19 General: see triage assessment . af3 10:20 Reassessment: Patient appears in no apparent distress at this time. No changes from af3 previously documented assessment. Patient and/or family updated on plan of care and expected duration. Pain level reassessed. Patient is alert, oriented x 3, equal unlabored respirations, skin warm/dry/pink. 10:25 General: waiting for potassium to be complete prior to discharge . af3 Vital Signs: 08:02 BP 138 / 94; Pulse 77; Resp 18; Temp 98.6; Pulse Ox 100% on R/A; Weight 62.14 kg; af3 Height 6 ft. 0 in. ; 09:00 BP 117 / 86; Pulse 78; Resp 16; Pulse Ox 100% on R/A; cm10 10:20 BP 123 / 87; Pulse 73; Resp 17; Pulse Ox 98% on R/A; af3 11:00 BP 122 / 81; Pulse 76; Resp 16; Pulse Ox 97% on R/A; cm10 11:30 BP 128 / 92; Pulse 90; Resp 17; Pulse Ox 100% on R/A; cm10 08:02 Body Mass Index 18.58 (62.14 kg, 182.88 cm) af3 ED Course: 07:48 Patient arrived in ED. im 07:50 Jerardo Saez MD is Attending Physician. rn 08:01 Janee Weaver RN is Primary Nurse. af3 08:05 Triage completed. af3 08:05 Arm band placed on. af3 08:15 Initial lab(s) drawn, by me, sent to lab. Inserted saline lock: 20 gauge in right cm10 antecubital area, using aseptic technique. Blood collected. Flushed with 10 mL NS. 10:00 Patient has correct armband on for positive identification. Bed in low position. Call cm10 light in reach. Side rails up X 1. Client placed on continuous cardiac and pulse oximetry monitoring. NIBP monitoring applied. shelter monitor on. 10:12 EKG done, by ED staff, reviewed by Jerardo Saez MD. pm7 11:50 No provider procedures requiring assistance completed. IV discontinued, intact, cm10 bleeding controlled, No redness/swelling at site. Pressure dressing applied. 11:51 Provided Education on: Follow-up instructions. cm10 Administered Medications: 08:19 Drug: NS 0.9% IV 1000 ml IV at 1000 ml once; to be given as a bolus over 60 minutes af3 Route: IV; Rate: 1000 ml; Site: right antecubital; 09:59 Follow up: Response: No adverse reaction; IV Status: Completed infusion; IV Intake: af3 1000ml 08:29 Drug: Diazepam IVP 2 mg IVP once Route: IVP; Site: right antecubital; cm10 10:24 Follow up: Response: No adverse reaction af3 09:12 Drug: Potassium Chloride IV 10 mEq IV at calculated rate once; administer over 1-2 af3 hours Route: IV; Rate: calculated rate; Site: right antecubital; 09:59 Follow up: Response: No adverse reaction; IV Status: Completed infusion af3 09:59 Drug: diphenhydrAMINE IVP 50 mg IVP once Route: IVP; Site: right antecubital; af3 10:24 Follow up: Response: No adverse reaction af3 Medication: 11:51 VIS not applicable for this client. cm10 Intake: 09:59 IV: 1000ml; Total: 1000ml. af3 Outcome: 10:22 Discharge ordered by rn 11:50 Discharged to home ambulatory, with family, 10 11:50 Condition: good 11:50 Discharge instructions given to patient, Instructed on discharge instructions, follow up and referral plans. Demonstrated understanding of instructions, follow-up care, 11:51 Patient left the ED. cm10 Signatures: Jerardo Saez MD MD rn Mendoza, Itzel im Martinez, Clarissa, RN RN 10 Janee Weaver RN RN af3 Christina Murry pm7
--- NOTE | 2025-01-29 10:22 | EDPHYS ---
Physician Documentation [facility] Name: Billy Miner Age: 24 yrs Sex: Male : 2000 Arrival Date: 01/29/2025 Time: 07:44 Bed 14 Private MD: ED Physician Jerardo Saez HPI: 01/29 09:06 This 24 yrs old Male presents to ER via Ambulatory with complaints of Has not rn slept in 3-4 days, hearing noises, Memory Loss. 09:06 Patient reports not feeling well for the last 3 to 4 days, has difficulty sleeping, rn perhaps getting an hour of sleep each night. States went on a binge last week, amusing benzos, morphine, Percocets on a daily basis. States last used drugs Wednesday and started to feel bad Wednesday. He feels like he is withdrawing. Reports seeing bugs on the wall that are not there. No previous history of schizophrenia or hallucinations outside of withdrawal.. Historical: - Allergies: 08:05 Zithromax; af3 - PMHx: 08:05 Anxiety; Depression; af3 - PSHx: 08:05 mouth; af3 - Immunization history:: Adult Immunizations up to date. - Infectious Disease History:: Denies. - Social history:: Smoking status: Patient reports the use of cigarette tobacco products, Patient uses alcohol, street drugs, marijuana. - Family history:: not pertinent. - Hospitalizations: : No recent hospitalization is reported. ROS: 09:06 Constitutional: Negative for fever, chills, and weight loss, Neck: Negative for injury, rn pain, and swelling, Cardiovascular: Negative for chest pain, palpitations, and edema, Respiratory: Negative for shortness of breath, cough, wheezing, and pleuritic chest pain, Abdomen/GI: Negative for abdominal pain, nausea, vomiting, diarrhea, and constipation, MS/Extremity: Negative for injury and deformity, Skin: Negative for injury, rash, and discoloration, Neuro: Negative for headache, weakness, numbness, tingling, and seizure, Exam: 09:06 Constitutional: This is a well developed, well nourished patient who is awake, alert, rn and in no acute distress. Head/Face: Normocephalic, atraumatic. ENT: Dry mucous membranes Cardiovascular: Regular rate and rhythm. No pulse deficits. Respiratory: No increased work of breathing, no retractions or nasal flaring. Abdomen/GI: Soft, non-tender MS/ Extremity: Pulses equal, no cyanosis. Neuro: Awake and alert, GCS 15, oriented to person, place, time, and situation. Cranial nerves II-XII grossly intact. Motor strength 5/5 in all extremities. Sensory grossly intact. 09:42 ECG was reviewed by the Attending Physician. rn Vital Signs: 08:02 BP 138 / 94; Pulse 77; Resp 18; Temp 98.6; Pulse Ox 100% on R/A; Weight 62.14 kg; af3 Height 6 ft. 0 in. ; 09:00 BP 117 / 86; Pulse 78; Resp 16; Pulse Ox 100% on R/A; cm10 10:20 BP 123 / 87; Pulse 73; Resp 17; Pulse Ox 98% on R/A; af3 11:00 BP 122 / 81; Pulse 76; Resp 16; Pulse Ox 97% on R/A; cm10 11:30 BP 128 / 92; Pulse 90; Resp 17; Pulse Ox 100% on R/A; cm10 08:02 Body Mass Index 18.58 (62.14 kg, 182.88 cm) af3 MDM: 07:50 Medical Screening Exam initiated rn 10:20 Differential diagnosis: metabolic disorder, drug effects, drug withdrawal, anxiety, rn depression. Data reviewed: vital signs, nurses notes, lab test result(s), and as a result, I will discharge patient. Counseling: I had a detailed discussion with the patient and/or guardian regarding the historical points, exam findings, and any diagnostic results supporting the discharge/admit diagnosis, lab results, the need for outpatient follow up, to return to the emergency department if symptoms worsen or persist or if there are any questions or concerns that arise at home. Response to treatment: the patient's symptoms have markedly improved after treatment, and as a result, I will discharge patient. Special discussion: I discussed with the patient/guardian in detail that at this point there is no indication for admission to the hospital. It is understood, however, that if the symptoms persist or worsen the patient needs to return immediately for re-evaluation. Based on the history and exam findings, there is no indication for further emergent testing or inpatient evaluation. I discussed with the patient/guardian the need to see the primary care provider for further evaluation of the symptoms. I discussed with the patient/guardian the need to see the psychiatrist for further evaluation of the symptoms. ED course: Patient feels much better after Valium, fluids, Benadryl. Getting some rest. Stable vital signs. Will discharge home as mild withdrawal from all the drugs he has been using. Recommended cessation of drug use. I have personally reviewed all of the results, including but not limited to blood tests deemed necessary to safely discharge this patient at this time. All results given to and printed out for patient. I personally went over all the results with the patient and answered all questions. Patient will follow-up with PCP and or specialist as discussed. Return precautions given and understood.. 01/29 07:59 Order name: CBC with Diff; Complete Time: 09: rn 01/29 07:59 Order name: Basic Metabolic Panel; Complete Time: 09: rn 01/29 07:59 Order name: IV Start; Complete Time: 08: rn 01/29 07:59 Order name: EKG - Nurse/Tech; Complete Time: : rn EC:42 Rate is 90 beats/min. Rhythm is regular. QRS [place] is Normal. TN interval is normal. QRS rn interval is normal. QT interval is normal. No Q waves. T waves are Normal. No ST changes noted. Clinical impression: NSR w/ Non-specific ST/T Changes. Interpreted by me. Reviewed by me. Administered Medications: 08:19 Drug: NS 0.9% IV 1000 ml IV at 1000 ml once; to be given as a bolus over 60 minutes af3 Route: IV; Rate: 1000 ml; Site: right antecubital; :59 Follow up: Response: No adverse reaction; IV Status: Completed infusion; IV Intake: af3 1000ml 08:29 Drug: Diazepam IVP 2 mg IVP once Route: IVP; Site: right antecubital; cm10 10:24 Follow up: Response: No adverse reaction af3 09:12 Drug: Potassium Chloride IV 10 mEq IV at calculated rate once; administer over 1-2 af3 hours Route: IV; Rate: calculated rate; Site: right antecubital; :59 Follow up: Response: No adverse reaction; IV Status: Completed infusion af3 09:59 Drug: diphenhydrAMINE IVP 50 mg IVP once Route: IVP; Site: right antecubital; af3 10:24 Follow up: Response: No adverse reaction af3 Disposition Summary: 01/29/25 10:22 Discharge Ordered Notes: Location: Home rn Problem: new rn Symptoms: have improved rn Condition: Stable rn Diagnosis - Opioid use, unspecified with withdrawal rn - Anxiety disorder, unspecified rn - Hypokalemia rn Followup: rn - With: Private Physician - When: As needed - Reason: Recheck today's complaints, Re-evaluation by your physician Discharge Instructions: - Discharge Summary Sheet rn - Opioid Withdrawal rn - Opioid Use Disorder rn - Hypokalemia rn - Opioid Withdrawal Treatment rn - Managing Anxiety, Adult rn Forms: - Medication Reconciliation Form rn - Antibiotic wax pattern coater - Prescription Opioid Use rn - Patient Portal Instructions rn - Leadership Thank You Letter rn Signatures: Dispatcher [employer] Jerardo Thomson MD MD rn Martinez, Clarissa RN RN 10 Janee Weaver RN RN af3
[2025-01-29 11:57] VITALS: TEMP 98.6
[2025-01-29 12:02] VITALS: BP 128/92; O2SAT 100
== END 2025-01-29 11:51 | disposition home or self-care (01) ==
LOC: ER 07:44
DX: F11.93 Opioid use, unspecified with withdrawal (principal); F41.9 Anxiety disorder, unspecified; E87.6 Hypokalemia; Z72.0 Tobacco use
CPT/HCPCS: 96365; 96361; 93005; 85025; 80048; 36415; 96375; 99285; J3480; J1200; J3360; J7040; J7030